=== PATIENT | male | born 1970 | race Caucasian/White ===

== ENCOUNTER 2018-11-02 07:18 | Inpatient (IN) | payer MEDICAID ==
[~2018-11-02] VITALS: Ht 172.7 cm; Wt 92.5 kg
[2018-11-02] MEDS ORDERED: SODIUM CHLORIDE 0.9% 1L BAG IV* STA (07:25)
[2018-11-02] MEDS ORDERED: ACETAMINOPHEN 500 MG TAB PO STA (07:49)
--- NOTE | 2018-11-02 07:49 | ERD ---
ER Documentation Chief Complaint Chief Complaint PT HERE WITH C/O FEVER, NAUSEA, ABD PAIN, BODYACHES HPI This is a 47-year-old male that presents to the emergency department complaining of epigastric pain. The patient indicates that for the past 24 hours he has had generalized myalgias. He has had a tactile fever with shaking and chills. He denies any frequency urgency or dysuria. He indicates that roughly 12 hours prior to arrival he started to develop the epigastric pain. Throughout the evening. He indicated he was unable to sleep due to the pain. The pain began to radiate to the right lower quadrant just prior to arrival. He denies any back pain. He stated his last dose of ibuprofen was 12 hours prior to arrival which he also took for the pain but this did not improve his symptoms. The pain is 8 out of 10 in intensity. He denies any past surgical history. He is felt nauseous with an episode of nonbloody nonbilious emesis. No recent sick contacts. No recent travel. No recent hospitalization. No chest pain or pressure that radiates to the neck arm back or jaw. No shortness of breath at rest or exertion. He denies a headache or neck pain. He has no changes in vision. He states there is no alleviating or exacerbating factors to the pain. He smokes tobacco but denies illicit drug use or alcohol use. He has no past medical history ROS All systems reviewed and are negative except as per history of present illness. Allergies Allergies: Coded Allergies: No Known Drug Allergies (Verified Allergy, Unknown, 11/02/18) Physical Exam Vitals Vital Signs Date Temp Pulse Resp B/P (MAP) Pulse Ox O2 O2 Flow FiO2 Time Delivery Rate 11/02/18 102.0 08:01 11/02/18 102.0 08:01 11/02/18 Nasal 2 07:29 Cannula 11/02/18 102.0 117 18 121/69 97 07:26 (86) Physical Exam Constitutional:Well-developed. Well-nourished. HEENT:Normocephalic. Atraumatic.Pupils were equal round reactive to light. Moist mucous membranes.No tonsillar exudates. Neck: No nuchal rigidity. No lymphadenopathy. No posterior cervical spine tenderness or step-offs. Respiratory: Not using accessory muscles of respiration.Lungs were clear to auscultation bilaterally. No rhonchi. No rales. No wheezing. Cardiovascular: Tachycardic with regular rhythm.No murmurs. No rubs were appreciated.S1, S2 normal. Distal pulses are palpable 2+ bilaterally. GI: Abdomen was soft. Epigastric tenderness. Tenderness in the right upper quadrant with negative [place] sign. Tenderness in the right lower quadrant with negative psoas and negative obturator sign.. Non Distended. No pulsatile abdomin al masses or bruits. No rebound. No guarding. Bowel sounds were present and normal. Muscle skeletal: Full range of motion of both the upper and lower extremities bilaterally.Normal muscle tone.No assymetrical calf tenderness or swelling. Skin: No petechia, no purpura. No lesions on the palms or the soles of the feet. No maculopapular rash. Mild diaphoresis NEURO: Patient was alert, awake, orientated x3.No facial droop. Gait observed and normal with no ataxia.Speech had regular rate and rhythm. No focal neurological deficits. Result Diagram: 11/02/18 0740 11/02/18 0740 Results 24 hrs Laboratory Tests Test 11/02/18 07:35 11/02/18 07:40 POC Venous Lactate 0.8 mmol/L White Blood Count 20.9 10^3/ul Red Blood Count 5.09 10^6/ul Hemoglobin 15.6 g/dl Hematocrit 45.7 % Mean Corpuscular Volume 89.8 fl Mean Corpuscular Hemoglobin 30.6 pg Mean Corpuscular Hemoglobin Concent 34.1 g/dl Red Cell Distribution Width 11.8 % Platelet Count 174 10^3/UL Mean Platelet Volume 10.5 fl Immature Granulocytes % 1.100 % Neutrophils % 90.1 % Lymphocytes % 2.8 % Monocytes % 5.8 % Eosinophils % 0.0 % Basophils % 0.2 % Nucleated Red Blood Cells % 0.0 /100WBC Immature Granulocytes # 0.230 10^3/ul Neutrophils # 18.8 10^3/ul Lymphocytes # 0.6 10^3/ul Monocytes # 1.2 10^3/ul Eosinophils # 0.0 10^3/ul Basophils # 0.1 10^3/ul Nucleated Red Blood Cells # 0.0 10^3/ul Prothrombin Time 12.9 Sec Prothrombin Time Ratio 1.0 INR International Normalized Ratio 0.96 Activated Partial Thromboplast Time 28.8 Sec Urine Color YELLOW Urine Clarity CLEAR Urine pH 8.0 Urine Specific [place] 1.025 Urine Ketones NEGATIVE mg/dL Urine Nitrite NEGATIVE mg/dL Urine Bilirubin NEGATIVE mg/dL Urine Urobilinogen 2+ mg/dL Urine Leukocyte Esterase NEGATIVE Art/ul Urine Microscopic RBC 12 /HPF Urine Microscopic WBC 1 /HPF Urine Hemoglobin NEGATIVE mg/dL Urine Glucose NEGATIVE mg/dL Urine Total Protein 1+ mg/dl Sodium Level 139 mmol/L Potassium Level 4.3 mmol/L Chloride Level 104 mmol/L Carbon Dioxide Level 27 mmol/L Anion Gap 8 Blood Urea Nitrogen 18 mg/dl Creatinine 1.01 mg/dl Est Glomerular Filtrat Rate mL/min > 60 mL/min Glucose Level 123 mg/dl Calcium Level 9.7 mg/dl Total Bilirubin 0.5 mg/dl Direct Bilirubin 0.00 mg/dl Indirect Bilirubin 0.5 mg/dl Aspartate Amino Transf (AST/SGOT) 28 IU/L Alanine Aminotransferase (ALT/SGPT) 39 IU/L Alkaline Phosphatase 81 IU/L Troponin I < 0.012 ng/ml Total Protein 7.8 g/dl Albumin 4.3 g/dl Globulin 3.50 g/dl Albumin/Globulin Ratio 1.22 Amylase Level 87 U/L Lipase 108 U/L Current Medications Medications Dose Sig/Noel Start Time Status Last (Trade) Ordered Route PRN Stop Time Admin Dose Reason Admin Sodium 2,400 ml BOLUS OVER 2 11/02/18 DC 11/02/18 Chloride HOURS STAT 07:25 07:44 (NS) IV* 11/02/18 07:27 1,000 mg ONCE STAT 11/02/18 DC 11/02/18 Acetaminophen PO 07:49 08:01 (Tylenol 11/02/18 07:51 Tab) Ibuprofen 800 mg ONCE ONCE 11/02/18 DC 11/02/18 (Motrin) PO 08:00 08:01 11/02/18 08:01 Ceftriaxone 50 ml @ ONCE STAT 11/02/18 DC 11/02/18 Sodium 100 mls/hr IVPB 08:03 08:39 11/02/18 08:32 Azithromycin 250 ml @ ONCE STAT 11/02/18 DC 11/02/18 250 mls/hr IV 08:03 09:29 11/02/18 09:02 IV Flush 10 ml STK-MED 11/02/18 DC 11/02/18 (NS 10 ml) ONCE .ROUTE 08:40 09:03 11/02/18 08:41 Sodium 100 ml @ ud STK-MED 11/02/18 DC 11/02/18 Chloride ONCE .ROUTE 08:40 09:03 11/02/18 08:41 Iodixanol 100 ml STK-MED 11/02/18 DC 11/02/18 (Visipaque ONCE .ROUTE 08:40 09:04 Locm) 11/02/18 08:41 Procedures/MDM This patient presented to the emergency department with abdominal pain and was seen and evaluated by myself. My differential diagnosis included but was not limited to abdominal aortic aneurysm, appendicitis, pancreatitis, perforated peptic ulcer, perforated viscus, Boerhaaves syndrome or visceral pain such as diverticulitis, DKA, esophagitis, hepatitis or bowel obstruction. The patient was placed on a cardiac cath lab technologist, continuous pulse oximetry, and IV access was established by nursing staff. The patient was given intravenous morphine and Zofran for analgesic control. I obtained a 12-lead EKG tracing to rule out for atypical myocardial infarction or cardiac arrhythmias patient was tachycardic. 12 Lead EKG tracing ordered and reviewed by myself showed: Sinus tachycardia 114 bpm and no arrhythmia. AK interval normal. QRS duration normal. No ST segment elevation No ST segment depression. No changes consistent with acute ischemia. The patient arrived he also met Sirs criteria. Code sepsis was called. The patient was given antipyretics which included Motrin and acetaminophen. The patient's lactic acid was normal however he did receive a 30 cc/kg bolus of normal saline and was treated for community-acquired pneumonia after the chest radiograph showed patchy left lower lobe infiltrate with leukocytosis of 20,000. The patient will be admitted to the hospitalist and I did feel the patient was stable to go to the medical surgical floor. Departure Diagnosis: Primary Impression: Pneumonia Pneumonia type: due to unspecified organism Laterality: left Lung location: lower lobe of lung Qualified Codes: J18.1 - Lobar pneumonia, unspecified organism Additional Impression: SIRS (systemic inflammatory response syndrome) Condition: Serious LATONYA GREEN MD Nov 02, 2018 07:49
[2018-11-02] MEDS ORDERED: IBUPROFEN 800 MG TAB PO ONE (08:00)
[2018-11-02] MEDS ORDERED: CEFTRIAXONE 1 GM/50 ML (PMX) 50 ML IVPB STA (08:03)
[2018-11-02] MEDS ORDERED: AZITHROMYCIN 500MG/NS (PMX) 250 ML IV STA (08:03)
[2018-11-02] MEDS ORDERED: SOD CHLORIDE 0.9% 100 ML ONE (08:40)
[2018-11-02] MEDS ORDERED: IODIXANOL LOCM 100 ML BTL ONE (08:40)
[2018-11-02] MEDS ORDERED: SOD CHLORIDE 0.9% 1,000 ML IV STA (10:28)
[2018-11-02] MEDS ORDERED: ONDANSETRON 4 MG INJ IV PRN (10:30)
[2018-11-02] MEDS ORDERED: ACETAMINOPHEN 325 MG TAB PO PRN (10:30)
[2018-11-02 13:20] VITALS: Ht 172.7 cm; Wt 92.5 kg
[2018-11-02 13:39] VITALS: BP 119/82; PULSE 104; RESP 18
[2018-11-02 15:00] VITALS: BP 129/70; PULSE 88; RESP 18
[2018-11-02] MEDS: CEFTRIAXONE 1 GM/50 ML (PMX) 50 ML IVPB SCH (15:30)
[2018-11-02] MEDS: SOD CHLORIDE 0.9% 1,000 ML IV SCH ×2 (15:30→22:30)
[2018-11-02] MEDS: ACETAMINOPHEN 325 MG TAB PO PRN (15:55)
--- NOTE | 2018-11-02 16:06 | HP ---
DATE OF ADMISSION: 11/02/2018 PRESENTING COMPLAINT: Fever and abdominal pain. HISTORY OF PRESENTING COMPLAINT: A 47-year-old male who presents with fever, abdominal pain more in the epigastric region. There is weakness and myalgia, for which he has been taking ibuprofen as an outpatient without improvement in symptoms. Symptoms started about a day ago. He denies coughing or sputum production. He also denies dysuria or hematuria. Denies passing out. He has not had any hematemesis, melenotic stools. He denies illicit drug use as well. PAST MEDICAL HISTORY: Essentially negative. PAST SURGICAL HISTORY: Patient denies. ALLERGIES: NO KNOWN DRUG ALLERGIES. SOCIAL HISTORY: Tobacco user but denies illicit drug use. FAMILY HISTORY: Positive for heart disease. REVIEW OF SYSTEMS: Per HPI. PHYSICAL EXAMINATION: VITAL SIGNS: T-max 102.0, currently pulse is 104, respirations 18, blood pressure 119/82, saturations 99% on room air. GENERAL EXAMINATION: This is a gentleman currently sleeping comfortably. HEENT: Head normocephalic. Pupils equal and reactive. Mucous membranes slightly dry. NECK: Supple, nontender. CHEST: Fairly clear, maybe diminished bilaterally. CARDIOVASCULAR: Tachycardia without murmurs. ABDOMEN: Mildly tender in the epigastrium radiating to the right upper quadrant, nondistended. Normoactive bowel sounds. LOWER EXTREMITIES: Negative for edema. SKIN: Devoid of rash or jaundice. PSYCHIATRIC: Calm, cooperative with exam. LABORATORY VALUES: He does have a leukocytosis of 20,000 with a neutrophil predominance with normal platelets. Urinalysis did have some red blood cells but otherwise was not suggestive of an infection. Chemistry was basically negative and a complete metabolic profile, coagulase panel were done. IMAGING STUDIES: CT of the abdomen and pelvis showed no obstructive uropathy, diverticulitis, or appendicitis but he did have evidence of bilateral nonobstructing renal calculi. Chest x-ray showed patchy left lower lobe infiltrate and mild right-sided atelectasis. ASSESSMENT AND PLAN: A 47-year-old male who had presented with fever, body aches, and epigastric tenderness since the last day. Currently managed as follows: 1. Sepsis with systemic inflammatory response syndrome, which could be secondary to pneumonia but I suspect more of a viral syndrome. He does not overtly have symptoms suggestive of a pneumonia, but the patient is going to be empirically treated all the same. Influenza screen was negative, but I will also go and include Tamiflu with his management. 2. Bilateral nonobstructing renal calculi with evidence of microscopic hematuria on urinalysis. We will continue fluid hydration and encouraged the patient to drink. So the plan of care basically is to admit him for observation, stabilize him and I want to see if blood counts are improved and, overall, if he feels better, preferably in 24 hours he will be discharged in stable condition. Dictated By: CHRISTO ARREGUIN MD BA/NTS Conf#: [id number] DID#: [id number] MTDVeronica
[2018-11-02] MEDS: AZITHROMYCIN 250 MG in SOD CHLORIDE 0.9% 250 ML IVPB SCH (17:07)
[2018-11-02] MEDS: OSELTAMIVIR 75 MG CAP PO SCH ×2 (17:07→20:20)
[2018-11-02] MEDS ORDERED: no meds (19:49)
[2018-11-02 20:00] VITALS: BP 119/72; PULSE 115; RESP 18
[2018-11-02] MEDS ORDERED: SOD CHLORIDE 0.9% 250 ML IV ONE (20:30)
[2018-11-02] MEDS ORDERED: IBUPROFEN 200 MG TAB PO ONE ×2 (20:30→23:30)
[2018-11-02] MEDS ORDERED: ACETAMINOPHEN 325 MG TAB PO ONE (21:30)
[2018-11-03] MEDS ORDERED: ACETAMINOPHEN 1000MG/100ML IV 100 ML IVPB PRN
[2018-11-03 02:34] VITALS: BP 113/67; PULSE 85; RESP 18
[2018-11-03] MEDS: SOD CHLORIDE 0.9% 1,000 ML IV SCH ×2 (03:26→11:21)
[2018-11-03 07:40] VITALS: BP 120/80; PULSE 95; RESP 16
[2018-11-03] MEDS: OSELTAMIVIR 75 MG CAP PO SCH (08:50)
[2018-11-03] MEDS ORDERED: ACET325T33 PO (13:08)
[2018-11-03] MEDS ORDERED: OSEL75CA23 PO (13:08)
[2018-11-03] MEDS ORDERED: AMOX500C2 PO (13:08)
[2018-11-03] MEDS: ACETAMINOPHEN 325 MG TAB PO PRN (13:11)
[2018-11-03 14:28] VITALS: BP 114/62; PULSE 99; RESP 16
[2018-11-03] MEDS: CEFTRIAXONE 1 GM/50 ML (PMX) 50 ML IVPB SCH (14:42)
[2018-11-03] MEDS: AZITHROMYCIN 250 MG in SOD CHLORIDE 0.9% 250 ML IVPB SCH (15:22)
--- NOTE | 2018-11-04 11:23 | DS ---
DATE OF ADMISSION: 11/02/2018 DATE OF DISCHARGE: 11/03/2018 FINAL DIAGNOSES: 1. Sepsis, likely secondary to viral syndrome versus tonsillitis with low probability of pneumonia, improved. 2. Sore throat with tonsillar enlargement and erythema, left greater than right. 3. X-ray suggestive of infiltrates without significant symptomatology suspicious of pneumonia. 4. Nonobstructing kidney stones. CONSULTS ON THE CASE: None. INTERVENTIONS: antibiotics and Tamiflu therapy. DISPOSITION: To home to complete 10 days of antibiotics as well as a 5 days of Tamiflu. ACTIVITIES: As tolerated. DIET: The patient is encouraged to maintain a liquid diet for comfort at this time and to advance as tolerated. FOLLOWUP: The patient is to follow up with his primary care doctor in the next 1 to 2 days to ensure continued resolution of symptoms. SHORT HOSPITALIZATION COURSE: Full details are available in the chart for review. In summary, this patient had presented with fevers and myalgias without significant cough, but met sepsis criteria and code sepsis was called. By a chest x-ray it was suggestive of a lower lobe pneumonia. The decision was made to admit him for observation. Interestingly, when the patient came in, he didn't complain a bout any sore throat and throat exam was not very revealing. However, by the day of discharge, the p atient woke up complaining of sore throat and pain and on evaluation, he did have a significantly enl arged left tonsil as compared to the right, which was quite erythematous, even though without exudate . A strep throat culture was obtained, but patient is doing much better and was requesting to be dis charged if possible. Based on how he is doing now, he has improved, I think the patient can be disch arged with empiric antibiotics while we follow up on the culture results and if anything we can conta ct him to change antibiotic regimen or to request readmission. This was communicated to him and he a greed with the plan. I answered his questions. At this time, patient is stable for discharge. If p evelio remains fever-free for at least 12 hours. Time spent on discharge discussion and coordination has been more than 40 minutes. Dictated By: CHRISTO ARREGUIN MD, BA/ZNA Conf#: [id number] DID#: [id number]
== END 2018-11-03 20:05 | disposition home or self-care (01) | DRG 872 ==
LOC: E/R 07:18 → PP2 10:03
PROVIDERS: ADMIT Family Medicine; ATTEND Family Medicine
DX: A41.9 Sepsis, unspecified organism (principal); N20.0 Calculus of kidney; J02.9 Acute pharyngitis, unspecified; J35.1 Hypertrophy of tonsils
CPT/HCPCS: 36415; 71045; 74177; 80053; 81001; 82150; 83605; 83690; 84484; 85025; 85610; 85730; 87086; 87400; 87430; 93005; 96365; 96367; J0131; J0456; J0696; J7030; J7040; J7050; Q9967

== ENCOUNTER 2018-12-14 12:53 | Emergency (ER) | payer MEDICAID ==
[~2018-12-14] VITALS: Ht 172.7 cm; Wt 89.0 kg
[~2018-12-14 12:53] MED LIST: ACET325T33 PO; AMOX500C2 PO; OSEL75CA23 PO
[2018-12-14 13:03] VITALS: BP 132/80; PULSE 83; RESP 19; Ht 172.7 cm; Wt 89.0 kg
[2018-12-14] MEDS ORDERED: DIPHTH/TET/ACEL PERTUSS (ADULT) 0.5 ML VIAL IM* ONE (15:30)
[2018-12-14] MEDS ORDERED: CEPH500C PO (15:51)
[2018-12-14] MEDS ORDERED: IBUP-1542 PO (15:51)
--- NOTE | 2018-12-14 15:55 | ERD ---
ER Documentation Chief Complaint Chief Complaint left thumb embedded by a nail HPI 48-year-old male presents with a puncture wound to the tip of his left thumb with a nail gun today. He felt as if it extended to the PIP joint. He has no restricted range of motion or weakness. This happened yesterday. Tetanus is not up-to-date. ROS All systems reviewed and are negative except as per history of present illness. Medications Home Meds Active Scripts Ibuprofen* (Motrin*) 600 Mg Tab, 600 MG PO Q6, #15 TAB Prov:LORAINE JOYCE MD 12/14/18 Cephalexin* (Cephalexin*) 500 Mg Capsule, 500 MG PO Q6 for 7 Days, #28 CAP Prov:LORAINE JOYCE MD 12/14/18 Acetaminophen* (Tylenol*) 325 Mg Tablet, 650 MG PO Q6H PRN for MILD PAIN(1-3)OR ELEVATED TEMP, #30 TAB Prov:CHRISTO ARREGUIN. 11/03/18 Oseltamivir Phosphate* (Tamiflu*) 75 Mg Capsule, 75 MG PO BID for 4 Days, CAP Prov:KALLIECHRISTO Carvajal M. 11/03/18 Amoxicillin* (Amoxicillin*) 500 Mg Cap, 500 MG PO Q8, #30 CAP Prov:CHRISTO ARREGUIN. 11/03/18 Allergies Allergies: Coded Allergies: No Known Drug Allergies (Verified Allergy, Unknown, 11/02/18) PMhx/Soc History of Surgery: No Anesthesia Reaction: No Hx Neurological Disorder: No Hx Respiratory Disorders: No Hx Cardiac Disorders: No Hx Psychiatric Problems: No Hx Miscellaneous Medical Probl: No Hx Alcohol Use: No Hx Substance Use: No Hx Tobacco Use: Yes (5 sigs a day) Smoking Status: Current every day smoker FmHx Family History: No diabetes, No coronary disease, No other Physical Exam Vitals Vital Signs Date Temp Pulse Resp B/P (MAP) Pulse Ox O2 O2 Flow FiO2 Time Delivery Rate 12/14/18 98.3 83 19 132/80 95 13:03 (97) Physical Exam Const: No acute distress Head: Atraumatic Eyes: Normal Conjunctiva ENT: Normal External Ears, Nose and Mouth. Neck: Full range of motion. No meningismus. Resp: Clear to auscultation bilaterally Cardio: Regular rate and rhythm, no murmurs Abd: Soft, non tender, non distended. Normal bowel sounds Skin: No petechiae or rashes Back: No midline or flank tenderness Ext: No cyanosis, or edema. Mild generalized swelling of the left thumb. No significant bony tenderness and no restricted range of motion, appreciable tendon or neurologic deficits. No warmth, erythema, bleeding or discharge. There is a puncture wound on the pad of the left thumb. It is sealed without bleeding. Neur: Awake and alert Psych: Normal Mood and Affect Results 24 hrs Current Medications Medications Dose Sig/Noel Start Time Status Last (Trade) Ordered Route PRN Stop Time Admin Dose Reason Admin Diphtheria/ 0.5 ml ONCE ONCE 12/14/18 DC 12/14/18 Tetanus/Acell IM* 15:30 15:07 Pertussis 12/14/18 15:31 (Adacel) Procedures/MDM X-ray left thumb 2V Interpreted by me: Bones: No fracture Joints: No dislocation Foreign body: None. Impression-soft tissue swelling without fracture or foreign body left thumb. She given a tetanus booster. She presents with a puncture wound to left thumb without signs of tendon deficits, fracture, dislocation, obvious infection, tenosynovitis.. He may have local inflammation due to the trauma of the deep puncture wound. Nonetheless we will treat empirically with Keflex, ibuprofen, instructions for return precautions for worsening redness, fevers, warmth, new worsening symptoms. Departure Diagnosis: Primary Impression: Finger injury Encounter type: initial encounter Laterality: left Qualified Codes: S69.92XA - Unspecified injury of left wrist, hand and finger(s), initial encounter Condition: Stable Patient Instructions: Puncture Wound, General Referrals: DOCTOR,NOT ON STAFF (PCP) Additional Instructions: X-ray read as normal. Recheck for worsening redness, fevers, new worsening symptoms. LORAINE JOYCE MD December 14, 2018 15:55
== END 2018-12-14 16:01 | disposition home or self-care (01) ==
LOC: FTE 12:53
DX: S61.032A Puncture wound without foreign body of left thumb without damage to nail, initial encounter (principal); F17.210 Nicotine dependence, cigarettes, uncomplicated; W29.4XXA Contact with nail gun, initial encounter; Y92.9 Unspecified place or not applicable; Z23 Encounter for immunization
CPT/HCPCS: 73140; 90471; 90715